=== PATIENT | male | born 1985 | race Asian ===

== ENCOUNTER 2018-04-16 19:38 | Emergency (ER) | END 2018-04-16 22:00 | disposition home or self-care (01) ==

== ENCOUNTER 2018-04-23 20:49 | Emergency (ER) | payer OTHER ==
[~2018-04-23] VITALS: Wt 122.7 kg
[~2018-04-23 20:49] MED LIST: ACYC800T5 PO; DEXT1DRO6 OP; PRED20TA PO
[2018-04-23 20:53] VITALS: BP 153/82; PULSE 104; RESP 18
[2018-04-23] MEDS ORDERED: PRED20TA PO (21:54)
--- NOTE | 2018-04-24 02:08 | ERD ---
ER Documentation Chief Complaint Chief Complaint Muscle weakness TO RIGHT SIDE OF FACE X'S 7 DAYS HPI 32-year-old male presents for right-sided facial muscle weakness times 7 days. He was evaluated here in the ER 7 days ago and was diagnosed with Lanier's palsy. He was given prescription for acyclovir and steroids and eyedrops.. States that the symptoms have not improved and he ran out of medications. Patient does not have any rashes on his skin. Denies fevers or chills. Denies chest pain, shortness of breath, abdominal pain, nausea, vomiting. Patient states that he has a follow-up appoint with his primary care physician in a couple days. Review of record shows that patient was given 4 days of steroids and a week of acyclovir. ROS All systems reviewed and are negative except as per history of present illness. Medications Home Meds Active Scripts Prednisone* (Prednisone*) 20 Mg Tab, 60 MG PO DAILY for lanier's palsy for 5 Days, #15 TAB Prov:SY HORTON DO 04/23/18 Dextran 70/Hypromellose (Artificial Tears) 1 Each Droperette, 1 EACH OP Q2H for 10 Days Prov:NATALEE GRACIA 04/16/18 Prednisone* (Prednisone*) 20 Mg Tab, 40 MG PO DAILY for 4 Days, TAB Prov:NATALEE GRACIA 04/16/18 Acyclovir* (Zovirax*) 800 Mg Tablet, 800 MG PO 5 TIMES DAILY for 7 Days, TAB Prov:NATALEE GRACIA 04/16/18 Allergies Allergies: Coded Allergies: No Known Drug Allergies (Verified Allergy, Unknown, 04/16/18) PMhx/Soc Medical and Surgical Hx: pt denies Surgical Hx Hx Miscellaneous Medical Probl: Yes (bells palsy) Hx Alcohol Use: No Hx Substance Use: No Hx Tobacco Use: Yes Smoking Status: Current every day smoker Physical Exam Vitals Vital Signs Date Temp Pulse Resp B/P (MAP) Pulse Ox O2 O2 Flow FiO2 Time Delivery Rate 04/23/18 97.8 104 18 153/82 98 20:53 (105) Physical Exam Const: No acute distress Head: Atraumatic, right facial muscle palsy including forehead muscle palsy Eyes: Normal Conjunctiva, unable to close his right eyelid fully. ENT: Normal External Ears, Nose and Mouth. Neck: Full range of motion. No meningismus. Resp: Clear to auscultation bilaterally Cardio: Regular rate and rhythm, no murmurs Skin: No petechiae or rashes Ext: No cyanosis, or edema, 5 out of 5 strength bilateral upper and lower extremities Neur: Awake and alert, bilateral upper and lower extremity sensation intact Psych: Normal Mood and Affect Procedures/MDM Medical Decision Making: Differential diagnosis includes but not limited to Lanier's palsy, stroke, meningitis. Physical examination consistent with right Lanier's palsy. Patient was evaluated in the ER a week ago and was given prescription for steroid for 4 days and acyclovir for about a week. Patient steroid treatment will be extended given the lack of response. Patient was advised however that he may take a month for symptoms improved. He is advised to follow with his primary care physician. Patient given prescription for steroids for an additional 5 days. Patient advised to follow up with PCP in 1-2 days. Patient advised to return to ED for new or worsening symptoms. Patient stable on discharge from the ED. Disclaimer: Inadvertent spelling and grammatical errors are likely due to EHR/dictation software use and do not reflect on the overall quality of patient care. Also, please note that the electronic time recorded on this note does not necessarily reflect the actual time of the patient encounter. Departure Diagnosis: Primary Impression: Lanier's palsy Condition: Fair Patient Instructions: Lanier's Palsy Referrals: [facility] YOU HAVE RECEIVED A MEDICAL SCREENING EXAM AND THE RESULTS INDICATE THAT YOU DO NOT HAVE A CONDITION THAT REQUIRES URGENT TREATMENT IN THE EMERGENCY DEPARTMENT. FURTHER EVALUATION AND TREATMENT OF YOUR CONDITION CAN WAIT UNTIL YOU ARE SEEN IN YOUR DOCTORS OFFICE WITHIN THE NEXT 1-2 DAYS. IT IS YOUR RESPONSIBILITY TO MAKE AN APPOINTMENT FOR FOLOW-UP CARE. IF YOU HAVE A PRIMARY DOCTOR --you should call your primary doctor and schedule an appointment IF YOU DO NOT HAVE A PRIMARY DOCTOR YOU CAN CALL OUR PHYSICIAN REFERRAL HOTLINE AT IF YOU CAN NOT AFFORD TO SEE A PHYSICIAN YOU CAN CHOSE FROM THE FOLLOWING [facility] [address] [facility] [address] [facility] [facility] [address] [facility] [address] [facility] [address] [facility]. [facility] [address] Additional Instructions: Call your primary care doctor TOMORROW for an appointment during the next 1-2 days.See the doctor sooner or return here if your condition worsens before your appointment time. SY HORTON DO Apr 24, 2018 02:08
== END 2018-04-23 22:30 | disposition home or self-care (01) ==
LOC: FTE 20:49
DX: G51.0 Bell's palsy (principal); F17.210 Nicotine dependence, cigarettes, uncomplicated
CPT/HCPCS: 99283